=== PATIENT | female | born 1965 | race Caucasian/White ===

== ENCOUNTER 2019-06-05 18:16 | Emergency (ER) | payer BC ==
[2019-06-05 18:48] VITALS: RESP 18
[2019-06-05] MEDS ORDERED: MECLIZINE 12.5 MG TAB PO STA (19:20)
[2019-06-05] MEDS ORDERED: SODIUM CHLORIDE 0.9% 1,000 ML IV STA ×2 (19:20)
[2019-06-05] MEDS ORDERED: ONDANSETRON 4 MG/2 ML VIAL IVP STA (19:20)
[2019-06-05] MEDS ORDERED: LORazepam 2 MG/ML INJ IV STA (19:20)
[2019-06-05 20:03] LABS: Basophils # (A) 0.1 k/uL (0-0.2); Basophils % (A) 1 %; Eosinophils # (A) 0.1 k/uL (0-0.7); Eosinophils % (A) 1 %; HGB 14.1 gm/dL (11.4-16.0); Lymphocytes % (A) 16 %; MCH 28.7 pg (25.0-35.0); MCHC 33.5 g/dL (31.0-37.0); MCV 85.8 fL (80.0-100.0); Mean Platelet Volume 8.2; Monocytes # (A) 0.4 k/uL (0-1.0); Monocytes % (A) 4 %; Neutrophils # (A) 9.7 k/uL (1.3-7.7); Neutrophils % (A) 78 %; Platelet Count 236 k/uL (150-450); RBC 4.89 m/uL (3.80-5.40); RDW 12.2 % (11.5-15.5); WBC 12.4 k/uL (3.8-10.6)
[2019-06-05 20:12] LABS: ALT 35 U/L (4-34); AST 29 U/L (14-36); African American GFR (CKD) >90 (>60 ml/min/1.73 sqM); Albumin 4.5 g/dL (3.5-5.0); Alkaline Phosphatase 124 U/L (38-126); Anion Gap 8 mmol/L; Blood Urea Nitrogen 19 mg/dL (7-17); Calcium 9.6 mg/dL (8.4-10.2); Carbon Dioxide 29 mmol/L (22-30); Chloride 99 mmol/L (98-107); Glucose 151 mg/dL (74-99); Non-African American GFR(CKD) 81 (>60 ml/min/1.73 sqM); Potassium 4.4 mmol/L (3.5-5.1); Sodium 136 mmol/L (137-145); Total Bilirubin 0.5 mg/dL (0.2-1.3); Total Protein 7.7 g/dL (6.3-8.2)
--- NOTE | 2019-06-05 20:56 | CT ---
EXAMINATION TYPE: CT brain wo con DATE OF EXAM: 06/05/2019 HISTORY: headache and dizziness CT DLP: 1098.4 mGycm. Automated Exposure Control for Dose Reduction was Utilized. TECHNIQUE: CT scan of the head is performed without contrast. COMPARISON: None. FINDINGS: There is no acute intracranial hemorrhage or midline shift identified. Ventricles and sul ci are normal in size. Mendez-white matter differentiation fairly well maintained. . Near complete opa cification right maxillary sinus extending into the middle nasal vault coronal image 19 without bony destruction. Hypoplastic bilateral frontal sinuses. Remainder paranasal sinuses are clear. The globes are intact bilaterally. IMPRESSION: No acute intracranial hemorrhage or midline shift. Expansile right maxillary sinus lesio n or disease. Advise nonemergent ENT referral.
--- NOTE | 2019-06-05 21:18 | ED ---
Dizziness HPI - General Chief Complaint: Dizziness Stated Complaint: dizziness/headache/vomiting Time Seen by Provider: 06/05/19 19:10 Source: patient Mode of arrival: ambulatory Limitations: no limitations - History of Present Illness Initial Comments: This 53-year-old white female presents with a complaint of some dizziness. She describes this as a severe spinning type sensation. It is worse with positional movements and head movements. She relates that it came on this afternoon and is associated with nausea and generalized weakness. She does relate a history of recent and chronic significant sinus disease. She's had 2 previous sinus surger ies and is currently getting ALLERGY shots for her sinuses. She apparently flew back from [place] a couple weeks ago and states that her ears did not seem to clear. She seems like she has a popping in her ears. She does have a chronic cough as well which she relates to her severe sinus disease. She sees Dr. Way from ENT. She denies any other complaints or modifying factors. - Related Data Previous Rx's Medication Instructions Recorded Amoxic-Pot Clav 875-125Mg 1 each PO Q12HR #20 tablet 06/05/19 [Augmentin Xr 875-125] Meclizine [Antivert] 25 mg PO TID PRN #20 tab 06/05/19 Ondansetron Odt [Zofran ODT] 8 mg PO Q8HR PRN #10 tab 06/05/19 Allergies Allergy/AdvReac Type Severity Reaction Status Date / Time No Known Allergies Allergy Verified 06/05/19 18:57 Review of Systems ROS Statement: Those systems with pertinent positive or pertinent negative responses have been documented in the HPI. ROS Other: All systems not noted in ROS Statement are negative. Past Medical History Past Medical History: No Reported History History of Any Multi-Drug Resistant Organisms: None Reported Additional Past Surgical History / Comment(s): cyst on ovary, sinus surgery. Past Psychological History: No Psychological Hx Reported Smoking Status: Former smoker Past Alcohol Use History: None Reported Past Drug Use History: None Reported General Exam - General Exam Comments Initial Comments: GENERAL: The patient is well nourished and well hydrated. VITAL SIGNS: Heart rate, blood pressure, respiratory rate reviewed as recorded in nurse's notes. EYES: Pupils are round and reactive. Extraocular movements are intact. No conjunctival / lid redness or swelling. ENT: No external evidence of injury, swelling, or ecchymosis. Airway is patent. Throat is clear. Tympanic membranes are clear. NECK: Nontender. No swelling or evidence of injury. No subcutaneous emphysema. Trachea is midline. No thyroid mass. HEART: Regular rate and rhythm. Good peripheral pulses. LUNGS/CHEST: Breath sounds clear and equal bilaterally. No rales, rhonchi, or wheezes. No ecchymosis, subcutaneous emphysema, or tenderness. ABDOMEN: Abdomen soft without tenderness. No palpable masses or organomegaly. No peritoneal signs. No abdominal wall swelling or ecchymosis. EXTREMITIES: No extremity tenderness. Normal muscle tone and function. No thoracolumbar tenderness. NEUROLOGIC: Sensation is grossly intact. Cranial nerve exam reveals face is symmetrical, tongue is midline, speech is clear. SKIN: No abrasions or ecchymosis is noted. No induration or masses noted. PSYCHIATRIC: Alert and oriented. Appropriate behavior and judgment. Limitations: no limitations Course Vital Signs 06/05/19 18:42 Temperature 98.3 F Pulse Rate 69 Respiratory 18 Rate Blood Pressure 148/80 O2 Sat by Pulse 98 Oximetry Medical Decision Making - Medical Decision Making The patient was seen and examined. All diagnostics were reviewed. She did receive an IV with some fluid hydration as well as Antivert orally. She also receives some Zofran and Ativan intravenously. She is feeling significantly improved on recheck. Her laboratory does show a mild leukocytosis otherwise no acute processes noted. The computed tomography scan of the brain does show severe right maxillary sinus disease with opacification and the highly recommend ENT follow-up for further evaluation. The computed tomography scan of the brain portion is otherwise negative. The patient is feeling better on recheck and able to sit up without any difficulty and feels well enough to be discharged home. It is felt as though she would require close follow-up with ENT. It sounds as though the patient may potentially be more of a viral labyrinthitis or vestibular neuronitis more so than a benign positional vertigo. The return parameters are discussed. Patient will be covered with antibiotics due to her significant sinus disease. - Lab Data Result diagrams: 06/05/19 19:44 06/05/19 19:44 Lab Results 06/05/19 06/05/19 Range/Units 19:44 19:44 WBC 12.4 H (3.8-10.6) k/uL RBC 4.89 (3.80-5.40) m/uL Hgb 14.1 (11.4-16.0) gm/dL Hct 42.0 (34.0-46.0) % MCV 85.8 (80.0-100.0) fL MCH 28.7 (25.0-35.0) pg MCHC 33.5 (31.0-37.0) g/dL RDW 12.2 (11.5-15.5) % Plt Count 236 (150-450) k/uL Neutrophils % 78 % Lymphocytes % 16 % Monocytes % 4 % Eosinophils % 1 % Basophils % 1 % Neutrophils # 9.7 H (1.3-7.7) k/uL Lymphocytes # 2.0 (1.0-4.8) k/uL Monocytes # 0.4 (0-1.0) k/uL Eosinophils # 0.1 (0-0.7) k/uL Basophils # 0.1 (0-0.2) k/uL Sodium 136 L (137-145) mmol/L Potassium 4.4 (3.5-5.1) mmol/L Chloride 99 (98-107) mmol/L Carbon Dioxide 29 (22-30) mmol/L Anion Gap 8 mmol/L BUN 19 H (7-17) mg/dL Creatinine 0.82 (0.52-1.04) mg/dL Est GFR (CKD-EPI)AfAm >90 (>60 ml/min/1.73 sqM) Est GFR (CKD-EPI)NonAf 81 (>60 ml/min/1.73 sqM) Glucose 151 H (74-99) mg/dL Calcium 9.6 (8.4-10.2) mg/dL Total Bilirubin 0.5 (0.2-1.3) mg/dL AST 29 (14-36) U/L ALT 35 H (4-34) U/L Alkaline Phosphatase 124 (38-126) U/L Total Protein 7.7 (6.3-8.2) g/dL Albumin 4.5 (3.5-5.0) g/dL Disposition Clinical Impression: Vertigo, Sinusitis, Nausea Disposition: HOME SELF-CARE Condition: Good Instructions (If sedation given, give patient instructions): Sinusitis (ED), Vertigo (ED), Acute Nausea and Vomiting (ED) Prescriptions: Meclizine [Antivert] 25 mg PO TID PRN #20 tab PRN Reason: Vertigo Amoxic-Pot Clav 875-125Mg [Augmentin Xr 875-125] 1 each PO Q12HR #20 tablet Ondansetron Odt [Zofran ODT] 8 mg PO Q8HR PRN #10 tab PRN Reason: Nausea And Vomiting Is patient prescribed a controlled substance at d/c from ED?: No Referrals: Feng Carlos MD [Primary Care Provider] - 1-2 days Grey Nguyen MD [STAFF PHYSICIAN] - 1-2 days Time of Disposition: 21:17
[2019-06-05 21:42] VITALS: BP 143/74; PULSE 77; TEMP 97.2
== END 2019-06-05 21:43 | disposition home or self-care (01) ==
LOC: EC 18:16
DX: R42 Dizziness and giddiness (principal); R11.0 Nausea; R53.1 Weakness; J32.0 Chronic maxillary sinusitis; D72.829 Elevated white blood cell count, unspecified; Z87.891 Personal history of nicotine dependence; Z85.22 Personal history of malignant neoplasm of nasal cavities, middle ear, and accessory sinuses
CPT/HCPCS: 36415; 93005; 80053; 85025; 70450; 99284; 96374; 96375; 96361 ×2; J2060; J2405